=== PATIENT | female | born 1960 ===

== ENCOUNTER 2018-02-16 11:02 | Outpatient (CLI) | payer OTHER | END 2018-02-16 14:05 | disposition home or self-care (01) | LOC: SONOGRAMA 11:02 | DX: E04.1 Nontoxic single thyroid nodule (principal) ==

== ENCOUNTER 2020-01-17 10:13 | Outpatient (CLI) | payer OTHER | END 2020-01-17 10:28 | disposition home or self-care (01) | LOC: SONOGRAMA 10:13 | DX: E04.1 Nontoxic single thyroid nodule (principal) ==

== ENCOUNTER 2022-07-08 11:12 | Outpatient (CLI) | payer OTHER | END 2022-07-08 11:14 | disposition home or self-care (01) | LOC: SONOGRAMA 11:12 | PROVIDERS: ATTEND Pathology Anatomic Pathology & Clinical Pathology | DX: E04.2 Nontoxic multinodular goiter (principal) ==